=== PATIENT | female | born 1945 | race Caucasian/White ===

== ENCOUNTER 2024-01-29 21:28 | Inpatient (IN) | payer MEDICARE ==
[~2024-01-29] VITALS: Ht 160 cm; Wt 68.0 kg
[2024-01-29 22:09] LABS: BASOPHILS ABSOLUTE AUTO 0.08 K/mm3 (0.00-0.23); BASOPHILS PERCENT AUTO 0 % (0-2); EOSINOPHILS ABSOLUTE AUTO 0.01 K/mm3 (0.00-0.68); EOSINOPHILS PERCENT AUTO 0 % (0-6); Hematocrit 37.7 % (33.0-51.0); Hemoglobin 12.5 g/dL (11.5-16.0); IMMATURE GRAN PERCENT AUTO 1 % (0-1); LYMPHOCYTES ABSOLUTE AUTO 1.16 K/mm3 (0.84-5.20); LYMPHOCYTES PERCENT AUTO 6 % (21-46); MONOCYTES ABSOLUTE AUTO 1.75 K/mm3 (0.16-1.47); MONOCYTES PERCENT AUTO 9 % (4-13); Mean Corpuscular HGB 29.1 pg (26.0-34.0); Mean Corpuscular HGB Conc 33.2 g/dL (31.5-36.5); Mean Corpuscular Volume 88 fL (80-100); Mean Platelet Volume 10.3 fL (9.1-12.4); NEUTROPHILS ABSOLUTE AUTO 15.77 K/mm3 (1.96-9.15); NEUTROPHILS PERCENT AUTO 84 % (41-73); Platelet Count 232 K/mm3 (150-400); RDW Coefficient Variation 13.5 % (11.7-14.2); RDW Standard Deviation 43.3 fL (35.1-46.3); White Blood Cell Count 18.87 K/mm3 (4.00-11.30)
[2024-01-29 22:13] LABS: Albumin, Blood 3.6 g/dL (3.4-5.0); Albumin/Globulin Ratio 0.8 (0.8-1.8); Bun/Creatinine Ratio 22.3 (12.0-20.0); Calcium, Blood 9.3 mg/dL (8.5-10.1); Creatinine, Blood 1.12 mg/dL (0.40-1.00); Globulin, Blood 4.3 g/dL (2.2-4.0); Potassium, Blood 4.2 mmol/L (3.5-5.5); Total Protein, Blood 7.9 g/dL (6.4-8.2)
[2024-01-29] MEDS ORDERED: FentaNYL Citrate 50 MCG/ML 2 ML Injection IV ONE (22:40)
[2024-01-29] MEDS ORDERED: NS 500 ML IV SCH (22:40)
[2024-01-29] MEDS ORDERED: HYDROmorphone HCl/Pf 1MG SYR IV ONE (23:45)
[2024-01-30] MEDS ORDERED: HYDROcodone 5-APAP 325 TAB PO PRN (00:25)
[2024-01-30] MEDS ORDERED: Acetaminophen 325 MG TABLET PO PRN (00:25)
[2024-01-30] MEDS ORDERED: Ondansetron HCl 2 MG / ML 2ML Vial IV PRN (00:30)
[2024-01-30] MEDS ORDERED: Naloxone HCl 0.4MG / ML 1ML Vial IV PRN (00:30)
[2024-01-30] MEDS ORDERED: HYDROmorphone HCl/Pf 1MG SYR IV PRN (00:30)
[2024-01-30] MEDS ORDERED: HydrALAZINE HCl 20 MG / ML 1ML Vial IV PRN (00:35)
[2024-01-30] MEDS ORDERED: Lactated Ringer's 1,000 ML IV SCH (01:25)
[2024-01-30 03:40] LABS: BASOPHILS ABSOLUTE AUTO 0.06 K/mm3 (0.00-0.23); BASOPHILS PERCENT AUTO 0 % (0-2); EOSINOPHILS PERCENT AUTO 0 % (0-6); Hematocrit 34.1 % (33.0-51.0); Hemoglobin 10.9 g/dL (11.5-16.0); IMMATURE GRAN ABSOLUTE AUTO 0.05 K/mm3 (0.00-0.10); IMMATURE GRAN PERCENT AUTO 0 % (0-1); LYMPHOCYTES ABSOLUTE AUTO 1.71 K/mm3 (0.84-5.20); LYMPHOCYTES PERCENT AUTO 11 % (21-46); MONOCYTES PERCENT AUTO 10 % (4-13); Mean Corpuscular HGB 29.3 pg (26.0-34.0); Mean Corpuscular Volume 92 fL (80-100); Mean Platelet Volume 10.5 fL (9.1-12.4); NEUTROPHILS ABSOLUTE AUTO 12.36 K/mm3 (1.96-9.15); NEUTROPHILS PERCENT AUTO 78 % (41-73); Platelet Count 191 K/mm3 (150-400); RDW Coefficient Variation 13.4 % (11.7-14.2); RDW Standard Deviation 45.1 fL (35.1-46.3); Red Blood Cell Count 3.72 M/mm3 (3.80-5.20); White Blood Cell Count 15.78 K/mm3 (4.00-11.30)
[2024-01-30 04:06] LABS: Albumin, Blood 3.1 g/dL (3.4-5.0); Albumin/Globulin Ratio 0.8 (0.8-1.8); Bilirubin, Total 0.7 mg/dL (0.1-1.0); Bun/Creatinine Ratio 21.7 (12.0-20.0); Calcium, Blood 8.5 mg/dL (8.5-10.1); Creatinine, Blood 1.06 mg/dL (0.40-1.00); Globulin, Blood 3.7 g/dL (2.2-4.0); Magnesium, Blood 2.1 mg/dL (1.6-2.4); Potassium, Blood 4.4 mmol/L (3.5-5.5); Total Protein, Blood 6.8 g/dL (6.4-8.2)
[2024-01-30 08:14] VITALS: BP 177/64
[2024-01-30] MEDS ORDERED: Docusate Sodium 100 MG Cap PO SCH (09:00)
[2024-01-30] MEDS ORDERED: AmLODIPine Besylate 5 MG Tab PO SCH (09:00)
[2024-01-30] MEDS ORDERED: Lisinopril 20 MG Tab PO SCH (09:00)
[2024-01-30] MEDS ORDERED: Atorvastatin 40 MG Tab PO SCH (09:00)
[2024-01-30] MEDS ORDERED: Lisinopril 5 MG Tab PO SCH (09:00)
[2024-01-30] MEDS ORDERED: Atenolol 50 MG Tab PO SCH (09:00)
[2024-01-30 10:11] VITALS: BP 154/60
--- NOTE | 2024-01-30 10:34 | NUR ---
PT ARRIVED TO UNIT FROM ER. SLID VIA SLIDER TO BED FROM [facility], [place], PT TOLERATED WELL BUT PAINFUL WITH MOVEMENT. MEDICATION PER EMAR AND PT ABLE TO SLEEP BUT REPORTS CONTINUED PAIN. PUREWICK PLACED. PT VOIDING. NPO AT THIS TIME PENDING ORTHO CONSULT. DR. SMITH NOTIFIED AND ROUNDING AT THIS TIME.
[2024-01-30 15:18] VITALS: BP 150/60
[2024-01-30] MEDS ORDERED: Polyethylene Glycol 3350 17 gm PO PRN (16:10)
--- NOTE | 2024-01-30 16:10 | NUR ---
SHIFT SUMMARY NO ACUTE CHANGES SINCE ARRIVAL TO UNIT, PT REMAINS NPO FOR POSSIBLE SURGERY TODAY. PAIN CONTROLLED PER EMAR.
[2024-01-30] MEDS ORDERED: ATOR20 PO (17:29)
[2024-01-30] MEDS ORDERED: ATEN50 PO (17:30)
[2024-01-30 19:26] VITALS: BP 170/61
[2024-01-31] VITALS (18 sets, daily range): BP systolic 122–185; BP diastolic 45–99
[2024-01-31] MEDS ORDERED: Lactated Ringer's 1,000 ML IV SCH ×2 (03:25→15:30)
[2024-01-31 04:28] LABS: Hematocrit 32.7 % (33.0-51.0); Hemoglobin 10.3 g/dL (11.5-16.0); Mean Corpuscular HGB 28.9 pg (26.0-34.0); Mean Corpuscular HGB Conc 31.5 g/dL (31.5-36.5); Mean Corpuscular Volume 92 fL (80-100); Mean Platelet Volume 10.4 fL (9.1-12.4); Platelet Count 170 K/mm3 (150-400); RDW Coefficient Variation 13.7 % (11.7-14.2); RDW Standard Deviation 46.3 fL (35.1-46.3); Red Blood Cell Count 3.57 M/mm3 (3.80-5.20); White Blood Cell Count 13.34 K/mm3 (4.00-11.30)
[2024-01-31 04:51] LABS: Bun/Creatinine Ratio 21.2 (12.0-20.0); Calcium, Blood 8.5 mg/dL (8.5-10.1); Creatinine, Blood 0.99 mg/dL (0.40-1.00); Potassium, Blood 4.2 mmol/L (3.5-5.5)
--- NOTE | 2024-01-31 07:43 | NUR ---
SHIFT SUMMARY NOC. PT A/O X4. PT NPO SINCE 0000 FOR PLANNED SURGERY FOR LEFT FEMUR FX REPAIR. PT MEDICATED FOR PAIN WITH REPORTED RELIEF. NEW ORDERS RECEIVED FOR LR FROM HOSPITALIST. PT RESTED WITH EYES CLOSED AND CALL LIGHT IN REACH.
[2024-01-31 08:03] LABS: Source, Urine Clean Catch
[2024-01-31 08:07] LABS: Appearance, Urine Hazy (Clear); Bilirubin, Urine Neg (Neg); Blood, Urine Neg (Neg); Color, Urine Yellow (P-Yellow); Glucose Qualitative, Urine Neg (Neg); Ketones, Urine Neg (Neg); Leukocyte Esterase, Urine 2+ (Neg); Nitrite, Urine Pos (Neg); Protein, Urine Neg (Neg); Urobilinogen, Urine NORM (Normal)
[2024-01-31 08:15] LABS: Bacteria Many /hpf; Squamous Epithelial Cells Few /hpf (Few)
[2024-01-31] MEDS ORDERED: CefTRIAXone Sodium 1,000 MG in NS 100 ML IV SCH (15:00)
[2024-01-31] MEDS ORDERED: Tranexamic Acid 100 ML IV SCH ×2 (15:30→15:35)
[2024-01-31] MEDS ORDERED: CeFAZolin Sodium 2,000 MG in NS 100 ML IV SCH (15:30)
[2024-01-31] MEDS ORDERED: Bupivacaine 0.5% Inj 50 ML Vial ONE (16:28)
[2024-01-31] MEDS ORDERED: FentaNYL Citrate 50 MCG/ML 2 ML Injection ONE (16:46)
[2024-01-31] MEDS ORDERED: propofoL 20 ML IV ONE (16:47)
[2024-01-31] MEDS ORDERED: EpiNEPhrine 1 MG/1 ML 1ML Vial ONE (17:07)
[2024-01-31] MEDS ORDERED: Sugammadex Sodium 200 MG/2ML SDV (100 MG/ML) ONE ×2 (17:32→17:43)
[2024-01-31] MEDS ORDERED: Phenylephrine HCl 100 MCG/ML-NS 10MLSYR (1MG/10ML) ONE (17:32)
[2024-01-31] MEDS ORDERED: FentaNYL Citrate 50 MCG/ML 2 ML Injection IV PRN ×3 (18:00)
[2024-01-31] MEDS ORDERED: HYDROmorphone HCl/Pf 1MG SYR IV PRN ×2 (18:05)
[2024-01-31] MEDS ORDERED: Labetalol HCL 5 MG/ML 4ML Injection (Single Dose) IV PRN (18:10)
[2024-01-31] MEDS ORDERED: Prochlorperazine Edisylate 10 mg Vial IV PRN (18:10)
[2024-01-31] MEDS ORDERED: Albuterol 2.5 MG/3 ML VIAL INH PRN (18:10)
[2024-01-31] MEDS ORDERED: ePHEDrine Sulfate 50 MG/ML 1ML Injection IV PRN (18:10)
[2024-01-31] MEDS ORDERED: Ondansetron HCl 2 MG / ML 2ML Vial IV PRN (18:10)
--- NOTE | 2024-01-31 19:21 | NUR ---
SHIFT SUMMARY S/P L HIP NAILING, AQUACEL X2 CDI, WIGGLES TOES. A&OX4, VSS/3L/BIOX, CHRISTINE PO, PUREWICK IN PLACE, PAIN TREATED PER EMAR. REPORT TO HIRAM REYNA
[2024-01-31] MEDS ORDERED: NS 250 ML IV PRN (21:00)
[2024-02-01] MEDS ORDERED: CeFAZolin Sodium 2,000 MG in NS 100 ML IV SCH
[2024-02-01 04:50] VITALS: BP 134/59
[2024-02-01 06:14] LABS: Hematocrit 30.7 % (33.0-51.0); Hemoglobin 9.8 g/dL (11.5-16.0); Mean Corpuscular HGB 29.3 pg (26.0-34.0); Mean Corpuscular HGB Conc 31.9 g/dL (31.5-36.5); Mean Corpuscular Volume 92 fL (80-100); Mean Platelet Volume 10.7 fL (9.1-12.4); Platelet Count 172 K/mm3 (150-400); RDW Coefficient Variation 13.2 % (11.7-14.2); RDW Standard Deviation 44.1 fL (35.1-46.3); Red Blood Cell Count 3.35 M/mm3 (3.80-5.20); White Blood Cell Count 12.35 K/mm3 (4.00-11.30)
--- NOTE | 2024-02-01 06:40 | NUR ---
SUMMARY- PT WAS ABLE TO GET UP W/ GB AND FWW. PT NEEDS 2 PERSON ASSIST. PT REPORTS SOME CONTINUED NUMBNESS. PT HAS GOOD MOVEMENT, COLOR AND PEDAL PULSES. PT PAIN TX PER MAR W/ RELIEF. PT HAS A PUREWICK DEVICE TO VOID. CALL LIGHT IN REACH.
[2024-02-01 07:05] VITALS: BP 168/65
[2024-02-01 07:05] LABS: Calcium, Blood 8.2 mg/dL (8.5-10.1); Creatinine, Blood 1.05 mg/dL (0.40-1.00); Potassium, Blood 4.5 mmol/L (3.5-5.5)
[2024-02-01 09:27] VITALS: BP 113/53
[2024-02-01] MEDS ORDERED: ROSUVASTATIN CA20 MG PO (11:42)
[2024-02-01] MEDS ORDERED: Enoxaparin 40 MG/0.4 ML SYR SC SCH (14:00)
[2024-02-01 15:47] VITALS: BP 115/48
--- NOTE | 2024-02-01 18:18 | NUR ---
SHIFT SUMMARY POD 1 L HIP PINNING. NO ACUTE CHANGES THIS SHIFT. VSS, PT ON 2L O2 VIA NC PRN TO MAINTAIN SAT >90%. TOLERATING ORALS. PT AMBULATES USING FWW c GB & 1 PERSON MAX ASSIST TO STAND/PIVOT TO BSC. TOILETS c MIN ASSIST, ATTENDS IN USE. AQUACEL x2 C/D/I. PT REPORTS PAIN TOLERABLE, MEDICATED PER EMAR. ANTICIPATED D/C TO SNF TOMORROW PENDING RESULTS FROM URINE CULTURES. CALL LIGHT IN REACH, BED IN LOWEST POSITION, WILL REPORT TO NOC RN.
[2024-02-01 20:30] VITALS: BP 131/55
[2024-02-02 03:57] VITALS: BP 150/61
--- NOTE | 2024-02-02 04:48 | NUR ---
SUMMARY- PT PAIN MANAGED WELL. PT BEEN SITTING IN RECLINER MOST OF NIGHT. PT HAS BEEN UP TO VOID W/ FWW AND GB. PT PAIN MANAGED WELL. PT UP TO VOID. DRESSING C/D/I. CALL LIGHT IN REACH.
[2024-02-02 05:26] LABS: Hematocrit 27.8 % (33.0-51.0); Hemoglobin 8.9 g/dL (11.5-16.0); Mean Corpuscular HGB 29.3 pg (26.0-34.0); Mean Corpuscular Volume 91 fL (80-100); Platelet Count 174 K/mm3 (150-400); RDW Coefficient Variation 13.2 % (11.7-14.2); RDW Standard Deviation 43.7 fL (35.1-46.3); Red Blood Cell Count 3.04 M/mm3 (3.80-5.20); White Blood Cell Count 11.54 K/mm3 (4.00-11.30)
[2024-02-02 06:19] LABS: Calcium, Blood 7.8 mg/dL (8.5-10.1); Creatinine, Blood 1.07 mg/dL (0.40-1.00); Percent Saturation 10.3 % (15.0-50.0); Potassium, Blood 3.8 mmol/L (3.5-5.5)
[2024-02-02 08:06] VITALS: BP 142/54
--- NOTE | 2024-02-02 10:38 | NUR ---
Pt. is awake and sitting up in a chair when she welcomes my visit. Pt. is pleasant. Facilitate a life review and Pt. verbalizes an expectation that she will be discharging to Rehab. Pt. displays evidence of being engaged and aware. Pt. speaks of a personal kecia. Prayed with the Pt. Pt. verbalized gratitude for the spiritual care visit.
--- NOTE | 2024-02-02 11:47 | NUR ---
DISCHARGE NOTE: PATIENT IS BEING DISCHARGED TO LOC[facility]IN [facility] TODAY. THIS NURSE CALLED AND GAVE REPORT TO THE [facility] NURSE EMELY. AFTER REPORT WAS GIVEN TO NURSE EMELY SHE HAD NO FURTHER QUESTIONS AT THIS TIME. PATIENTS PAIN IS MANAGED WITH PO PAIN MEDS. HER LEFT HIP HAS X2 AQUACEL DRESSINGS THAT ARE C/D/I. SHE DENIES NUMBNESS OR TINGLING TO ALL EXTREMITIES. SHE IS A SBA WITH FWW AND GAIT BELT. PATIENT IS VOIDING, PASSING GAS, AND IS TOLERATING PO INTAKE. PATIENT HAS PERSONAL ITEMS IN THE ROOM GATHERED. TRANSPORT WILL ARRIVE AROUND 1400 TO TAKE HER TO [facility]. PATIENT IS CURRENTLY IN THE RECLINER CHAIR WITH CALL LIGHT IN REACH. PATIENT CALLS APPROPRIATELY. PATIENT HAS EXTRA AQUACEL DRESSINGS FOR FUTURE DRESSING CHANGES AT [facility]. HARD PERSCRIPTION IS IN FOLDER THAT CASE MANAGEMENT ORI IS MAKING FOR TRANSPORT TO TAKE AND GIVE TO [facility] NURSE.
[2024-02-02 12:37] LABS: SARS-Cov-2 (COVID-19) PCR, MMC NEGATIVE (NEGATIVE)
--- NOTE | 2024-02-02 14:05 | NUR ---
TRANSPORT ARRIVED AND IS TAKING HER TO [facility] IN A WHEELCHAIR. PATIENT HAS ALL OF HER PERSONAL BELONGINGS IN THE ROOM GATHERED AND WITH HER.
== END 2024-02-02 14:06 | DRG 481 ==
LOC: ER 21:28 → ERHOLD 21:29 → SURS 01-30 08:01
PROVIDERS: Emergency Medicine; Internal Medicine; Orthopaedic Surgery Sports Medicine; ADMIT Student in an Organized Health Care Education/Training Program
PROC: 0QS736Z Reposition Left Upper Femur with Intramedullary Internal Fixation Device, Percutaneous Approach (ICD-10-PCS; principal; 2024-01-31 13:30)
DX: S72.142A Displaced intertrochanteric fracture of left femur, initial encounter for closed fracture (principal); D62 Acute posthemorrhagic anemia; E87.0 Hyperosmolality and hypernatremia; N17.9 Acute kidney failure, unspecified; E87.1 Hypo-osmolality and hyponatremia; I12.9 Hypertensive chronic kidney disease with stage 1 through stage 4 chronic kidney disease, or unspecified chronic kidney disease; D72.829 Elevated white blood cell count, unspecified; D50.9 Iron deficiency anemia, unspecified; N18.31 Chronic kidney disease, stage 3a; E78.5 Hyperlipidemia, unspecified; R82.71 Bacteriuria; Z90.710 Acquired absence of both cervix and uterus; Z98.890 Other specified postprocedural states; Z87.891 Personal history of nicotine dependence; Z88.8 Allergy status to other drugs, medicaments and biological substances; W07.XXXA Fall from chair, initial encounter
CPT/HCPCS: 36415; 73110; 73502; 73562-LT; 80048; 80053; 81001; 82550; 82607; 82728; 82746; 83540; 83550; 83735; 85025; 85027; 87077; 87086; 87186; 93005; 93010; 94762; 96374; 96375; 96376; 97110; 97116; 97161; 97165; 97530; 97535; 99285-25; A9270; C1713; C1769; G0378; J0171; J0690; J0696; J1170; J1650; J2371; J2704; J3010; J7030; J7050; J7120; U0002